=== PATIENT | female | born 1965 | race Two or more races ===

== ENCOUNTER → 2022-03-28 | Emergency (ER) | payer SELFPAY ==
[~2022-03-28] VITALS: Ht 157.5 cm; Wt 81.0 kg
[~2022-03-28] MED LIST: CLINDAMYCIN HCL 150MG CAPSULE PO ONE; LIDOCAINE HCL 1% 20ML VIAL (Pyxis) INJ INFIL ONE; OXYCODONE HCL/ACETAMINOPHEN 5/325MG TABLET PO ONE; TETANUS, DIPHTHERIA, PERTUSSIS VAC/PF 0.5ML (>10YR OLD) IM ONE
[2022-03-28 15:53] VITALS: BP 148/68
== END | disposition left against medical advice (07) ==
LOC: ER 15:52
DX: S61.412A Laceration without foreign body of left hand, initial encounter (principal); E11.9 Type 2 diabetes mellitus without complications; Z88.0 Allergy status to penicillin; W26.0XXA Contact with knife, initial encounter; Y93.G3 Activity, cooking and baking; Y92.010 Kitchen of single-family (private) house as the place of occurrence of the external cause
CPT/HCPCS: 12001; 99282